=== PATIENT | female | born 1960 | race Caucasian/White ===

== ENCOUNTER 2018-03-02 12:35 | Emergency (ER) | payer MEDICARE, OTHER ==
--- NOTE | 2018-03-02 12:55 | ER Document Report ---
ED Medical Screen (RME) - General Chief Complaint: Abnormal Lab Results Stated Complaint: ABNORMAL LABS Time Seen by Provider: 03/02/18 12:54 Notes: The patient is a 58-year-old female, past medical history factor V Leiden (on daily baby ASA), MS, presents with increased shortness of breath over the past 2 days. She saw her primary care physician yesterday and had an elevated d- dimer of 5.6. She was sent to the ER for further evaluation and treatment. PE: Tachycardia, no respiratory distress. Lungs CTAB. No extremity swelling. I have greeted and performed a rapid initial assessment of this patient. A comprehensive ED assessment and evaluation of the patient, analysis of test results and completion of the medical decision making process will be conducted by additional ED providers. TRAVEL OUTSIDE OF THE [place] IN LAST 30 DAYS: No - Related Data Allergies/Adverse Reactions: codeine Allergy (Verified 03/02/18 12:51) Past Medical History - Social History Frequency of alcohol use: None Drug Abuse: None Renal/ Medical History: Denies: Hx Peritoneal Dialysis Physical Exam - Vital signs Vitals: Temp Pulse BP Pulse Ox 98.6 F 123 H 126/76 H 98 03/02/18 12:41 03/02/18 12:41 03/02/18 12:41 03/02/18 12:41 Course - Vital Signs Vital signs: Temp Pulse Resp BP Pulse Ox 98.6 F 123 H 126/76 H 98 03/02/18 12:41 03/02/18 12:41 03/02/18 12:41 03/02/18 12:41 Doctor's Discharge - Discharge Referrals: WILLA SANCHEZ MD [Primary Care Provider] - Follow up as needed
[2018-03-02 13:20] LABS: HEMATOCRIT 40.9 % (36.0-47.0); MEAN CORPUSCULAR HEMOGLOBIN 30.4 pg (27.0-33.4); MEAN CORPUSCULAR HGB CONC 34.2 g/dL (32.0-36.0); MEAN CORPUSCULAR VOLUME 89 fl (80-97); PLATELET COUNT 501 10^3/uL (150-450); RED CELL DISTRIBUTION WIDTH 13.9 % (11.5-14.0); WHITE BLOOD COUNT 16.4 10^3/uL (4.0-10.5)
[2018-03-02 13:25] LABS: INTERNATIONAL RATION (INR) 1.06; PROTHROMBIN TIME 14.4 SEC (11.4-15.4)
[2018-03-02 13:26] LABS: PARTIAL THROMBOPLASTIN TIME 34.2 SEC (23.5-35.8)
[2018-03-02 13:34] LABS: ALANINE AMINOTRANSFERASE 36 U/L (9-52); ALBUMIN 3.2 g/dL (3.5-5.0); ALKALINE PHOSPHATASE 92 U/L (38-126); ANION GAP 11 (5-19); ASPARTATE AMINO TRANSFERASE 23 U/L (14-36); BILIRUBIN,DIRECT 0.5 mg/dL (0.0-0.4); BILIRUBIN,TOTAL 0.9 mg/dL (0.2-1.3); BLOOD UREA NITROGEN 19 mg/dL (7-20); CALCIUM 9.7 mg/dL (8.4-10.2); CARBON DIOXIDE 27 mmol/L (22-30); CHLORIDE 97 mmol/L (98-107); GLUCOSE 280 mg/dL (75-110); POTASSIUM 4.2 mmol/L (3.6-5.0)
[2018-03-02 13:43] LABS: ABSOLUTE LYMPHOCYTES# (MANUAL) 1.5 10^3/uL (0.5-4.7); ABSOLUTE MONOCYTES # (MANUAL) 1.6 10^3/uL (0.1-1.4); ABSOLUTE NEUTROPHILS# (MANUAL) 13.3 10^3/uL (1.7-8.2); BAND NEUTROPHILS % (MANUAL) 1 % (3-5); BASOPHILS % (MANUAL) 0 % (0-2); EOSINOPHILS % (MANUAL) 0 % (0-6); LYMPHOCYTES % (MANUAL) 9 % (13-45); MONOCYTES % (MANUAL) 10 % (3-13); PLATELET COMMENT ADEQUATE; POLYCHROMASIA SLIGHT; SEGMENTED NEUTROPHILS % (MAN) 80 % (42-78); TOTAL CELLS COUNTED 100; TOXIC GRANULATION 2+; TOXIC VACUOLATION PRESENT
--- NOTE | 2018-03-02 13:59 | RADIOLOGY REPORT (SQ) ---
EXAM DESCRIPTION: CTA CHEST COMPLETED DATE/TIME: 03/02/2018 12:46 pm REASON FOR STUDY: SOB, tachycardia, elevated d-dimer COMPARISON: None. TECHNIQUE: CT scan of the chest performed using helical scanning technique with dynamic intravenous contrast injection. Images reviewed with lung, soft tissue and bone windows. Reconstructed coronal and sagittal MPR images reviewed. Additional 3 dimensional post-processing performed to develop Maximal Intensity Projection images (CT P). All images stored on PACS. All CT scanners at this facility use dose modulation, iterative reconstruction, and/or weight based d osing when appropriate to reduce radiation dose to as low as reasonably achievable (ALARA). [facility]: Dose Right [facility]: CareDose [facility]: Dose Right [facility]: Teradose 4D [facility]: Youxiduo CONTRAST TYPE AND DOSE: 67 mL of IV Isovue 370- low osmolar. Contrast bolus optimized for the pulmonary arteries and aorta. RENAL FUNCTION: Creatinine 0.7 RADIATION DOSE: 30 mGy . LIMITATIONS: None. FINDINGS: LUNGS AND PLEURA: Minimal bibasilar bandlike atelectasis. No fluffy alveolar infiltrates worrisome for edema or pneumonia. No pleural effusion. No pneumothorax. AORTA AND GREAT VESSELS: No aneurysm. No thoracic aortic dissection. HEART: No pericardial effusion. No significant coronary artery calcifications. PULMONARY ARTERIES: No emboli visualized in the main pulmonary arteries or the segmental branches. HILAR AND MEDIASTINAL STRUCTURES: No identified masses or abnormal nodes. HARDWARE: None in the chest. UPPER ABDOMEN: Extensive peripancreatic fluid and inflammation is present throughout the retroperiton eum. Findings are worrisome for acute pancreatitis. There are multiple calcified gallstones present in the gallbladder. No definite calcified common duct stones by CT, although CT could miss common duct calculi. This finding was called to Dr. Ramos THYROID AND OTHER SOFT TISSUES: No masses. No adenopathy. BONES: No acute or significant finding. 3D MIPS: Confirm above findings. OTHER: No other significant finding. IMPRESSION: No CT angio evidence of acute pulmonary emboli or thoracic aortic dissection. Acute pancreatitis COMMENT: Quality ID # [id number]: Final reports with documentation of one or more dose reduction techniques (e.g., Automated exposure control, adjustment of the mA and/or kV according to patient size, use of iterative reconstruction technique) TECHNICAL DOCUMENTATION: JOB ID: [id number] [employer]- All Rights Reserved Reading location - IP/workstation name: [email or web address]
--- NOTE | 2018-03-02 14:13 | ER Document Report ---
ED General - General Chief Complaint: Abnormal Lab Results Stated Complaint: ABNORMAL LABS Time Seen by Provider: 03/02/18 12:54 Mode of Arrival: Ambulatory Information source: Patient, Relative TRAVEL OUTSIDE OF THE [place] IN LAST 30 DAYS: No - HPI Onset: Last week Onset/Duration: Gradual Quality of pain: Dull Severity: Moderate Associated symptoms: Nausea, Vomiting, Shortness of breath. denies: Chills, Diarrhea, Fever Exacerbated by: Denies Relieved by: Denies Similar symptoms previously: No Recently seen / treated by doctor: Yes - PCP, Notes: Patient states present illness began with upper GI symptoms, including nausea and vomiting approximately 1 week ago. The nausea and vomiting gradually improved over the next couple of days, but since then she has experienced a vague malaise, loss of appetite, and vague abdominal discomfort. She denies any fever or chills. She does admit to some shortness of breath. She apparently went see her primary care provider yesterday who ordered multiple medical screening laboratory tests, and results were reported today significant for elevated d-dimer, CRP, ESR, and WBC. She is referred to the emergency department for further evaluation. - Related Data Allergies/Adverse Reactions: codeine Allergy (Verified 03/02/18 12:51) Past Medical History - General Information source: Patient - Social History Smoking Status: Never Smoker Cigarette use (# per day): No Chew tobacco use (# tins/day): No Frequency of alcohol use: None Drug Abuse: None Lives with: Family Family History: None Patient has suicidal ideation: No Patient has homicidal ideation: No - Past Medical History Cardiac Medical History: Reports: None Pulmonary Medical History: Reports: None EENT Medical History: Reports: None Neurological Medical History: Reports: Other - M.S. Endocrine Medical History: Reports: Hx Diabetes Mellitus Type 2. Denies: Hx Graves' Disease Renal/ Medical History: Reports: None. Denies: Hx Peritoneal Dialysis Malignancy Medical History: Reports: None GI Medical History: Reports: None Musculoskeltal Medical History: Reports None Psychiatric Medical History: Reports: None Past Surgical History: Reports: Hx Hysterectomy, Other - PILONIDAL CYST Physical Exam - Vital signs Vitals: Temp Pulse BP Pulse Ox 98.6 F 123 H 126/76 H 98 03/02/18 12:41 03/02/18 12:41 03/02/18 12:41 03/02/18 12:41 Course - Re-evaluation Re-evalutation: 03/02/18 14:50 Patient is unchanged subjectively. Results of laboratory evaluation and CT scan discussed with patient and family. Abdominal ultrasonography is pending. 03/02/18 19:56 Patient was reevaluated immediately prior to transport. She is alert, oriented , and cooperative. Vital signs are stable. She is stable for transport. - Vital Signs Vital signs: Temp Pulse Resp BP Pulse Ox 98.8 F 123 H 17 136/79 H 98 03/02/18 19:52 03/02/18 12:41 03/02/18 19:53 03/02/18 19:53 03/02/18 19:53 - Laboratory Result Diagrams: 03/02/18 13:05 03/02/18 13:05 Laboratory results interpreted by me: 03/02/18 03/02/18 13:05 13:05 WBC 16.4 H Plt Count 501 H Seg Neuts % (Manual) 80 H Band Neutrophils % 1 L Lymphocytes % (Manual) 9 L Abs Neuts (Manual) 13.3 H Abs Monocytes (Manual) 1.6 H Sodium 135.0 L Chloride 97 L Glucose 280 H Direct Bilirubin 0.5 H Total Protein 6.0 L Albumin 3.2 L - Diagnostic Test Radiology reviewed: Reports reviewed - Consults Time consulted: 16:55 Reason for consultation: 03/02/18 17:02 ACCEPTS PATIENT FOR TRANSFER. Discharge - Discharge Clinical Impression: Dehydration, Multiple sclerosis Pancreatitis Qualifiers: Chronicity: acute Pancreatitis type: unspecified pancreatitis type Acute pancreatitis complication: unspecified Qualified Code(s): K85.90 - Acute pancreatitis without necrosis or infection, unspecified Dyspnea Qualifiers: Dyspnea type: unspecified Qualified Code(s): R06.00 - Dyspnea, unspecified Condition: Good Disposition: [facility] Referrals: WILLA SANCHEZ MD [Primary Care Provider] - Follow up as needed
[2018-03-02] MEDS: NORMAL SALINE 1000 ML 1,000 ML IV PRN ×2 (14:26→14:28)
--- NOTE | 2018-03-02 16:21 | RADIOLOGY REPORT (SQ) ---
EXAM DESCRIPTION: U/S ABDOMEN LIMITED W/O DOP COMPLETED DATE/TIME: 03/02/2018 4:02 pm REASON FOR STUDY: pancreatitis, GB stones on CT COMPARISON: CT angio chest 03/02/2018 TECHNIQUE: Dynamic and static grayscale images acquired of the abdomen and recorded on PACS. Additio nal selected color Doppler and spectral images recorded. LIMITATIONS: Body habitus, midline upper abdominal bowel gas FINDINGS: PANCREAS: Not visualized due to midline upper abdominal bowel gas LIVER: No masses. Echotexture normal. LIVER VASCULATURE: Normal directional flow of the main portal vein and hepatic veins. GALLBLADDER: Contracted around multiple stones. Wall -echo -shadow complex. Gallbladder wall 3 mm i n thickness ULTRASOUND-DETECTED GARDINER'S SIGN: Negative. INTRAHEPATIC DUCTS AND COMMON DUCT: No intrahepatic biliary ductal dilatation. Common bile duct at t he [place] hepatis 4 mm in size. Distal common duct at the pancreas not well seen INFERIOR VENA CAVA: Normal flow. AORTA: No aneurysm. RIGHT KIDNEY: Normal size. Normal echogenicity. No solid or suspicious masses. No hydronephrosis. No calcifications. PERITONEAL AND RIGHT PLEURAL SPACE: No ascites or effusions. OTHER: No other significant findings. IMPRESSION: Multiple stones in a contracted gallbladder. No intrahepatic biliary ductal dilatation. No common bile duct dilatation of the china hepatis. Dis sacha most common duct and pancreas not well seen. TECHNICAL DOCUMENTATION: JOB ID: [id number]- All Rights Reserved Reading location - IP/workstation name: [email or web address]
[2018-03-02 19:56] VITALS: BP 136/79
== END 2018-03-02 20:20 | disposition short-term general hospital (02) ==
LOC: ER 12:35
DX: E86.0 Dehydration (principal); G35 Multiple sclerosis; K85.90 Acute pancreatitis without necrosis or infection, unspecified; R11.2 Nausea with vomiting, unspecified; R06.00 Dyspnea, unspecified; R53.81 Other malaise; R10.9 Unspecified abdominal pain; E11.9 Type 2 diabetes mellitus without complications; Z88.6 Allergy status to analgesic agent; Z90.710 Acquired absence of both cervix and uterus
CPT/HCPCS: 99285; 96360; 36415; 83690; 85025; 85610; 85730; 80053; 76705; 71275; J7030

== ENCOUNTER → 2018-03-02 | Outpatient (CLI) | payer SELFPAY | LOC: LAB 12:10 | PROVIDERS: ATTEND Family Medicine | DX: Z53.9 Procedure and treatment not carried out, unspecified reason (principal) ==